=== PATIENT | male | born 1970 | race Caucasian/White ===

== ENCOUNTER 2018-10-11 16:39 | Emergency (ER) | payer MEDICAID ==
[~2018-10-11] VITALS: Ht 182.9 cm; Wt 99.8 kg
[2018-10-11 16:50] VITALS: BP 146/96
[2018-10-11] MEDS ORDERED: IBUPROFEN 600 MG TAB PO ONE (18:00)
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
--- NOTE | 2018-10-11 19:36 | NUR ---
COLLES SPLINT APPLIED TO PT L WRIST, WRAPPED IN [facility] WRAP. +CSM
[2018-10-11 19:55] VITALS: BP 146/96
--- NOTE | 2018-10-11 19:55 | NUR ---
Patient discharged with v/s stable. Written and verbal after care instructions given and explained. Patient alert, oriented and verbalized understanding of instructions. Ambulatory with steady gait. All questions addressed prior to discharge. ID band removed. Patient advised to follow up with PMD. Rx of KEFLEX, BACITRACIN, AND IBUPROFEN given. Patient educated on indication of medication including possible reaction and side effects. Opportunity to ask questions provided and answered.
== END 2018-10-11 19:55 | disposition home or self-care (01) ==
LOC: MED 16:39
DX: S66.912A Strain of unspecified muscle, fascia and tendon at wrist and hand level, left hand, initial encounter (principal); R03.0 Elevated blood-pressure reading, without diagnosis of hypertension; W22.8XXA Striking against or struck by other objects, initial encounter; Y93.89 Activity, other specified; Y92.89 Other specified places as the place of occurrence of the external cause; Y99.0 Civilian activity done for income or pay
CPT/HCPCS: 73110; 90471; 90715; 99283

== ENCOUNTER 2019-06-14 06:04 | Emergency (ER) | payer MEDICAID ==
[~2019-06-14] VITALS: Ht 180.3 cm; Wt 77.1 kg
[2019-06-14 06:05] VITALS: BP 152/92
--- NOTE | 2019-06-14 06:05 | NUR ---
TO BED # 09 AMBULATORY
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
[2019-06-14] MEDS ORDERED: IBUPROFEN 800 MG TAB PO ONE (06:15)
[2019-06-14] MEDS ORDERED: LIDOCAINE 2% 1000 MG/50 ML VIAL INJ ONE (06:15)
--- NOTE | 2019-06-14 06:30 | NUR ---
ERMD AND EMT @ BEDSIDE FOR SUTURE PLACEMENT
[2019-06-14] MEDS ORDERED: NEOMYCIN/POLYMYXIN/BACITRACIN 0.9 GM/1 PKT TP ONE (06:40)
[2019-06-14] MEDS ORDERED: CLINDAMYCIN 600 MG/4 ML VIAL IM ONE (06:40)
[2019-06-14 07:00] VITALS: BP 138/68
--- NOTE | 2019-06-14 07:00 | NUR ---
Patient discharged with v/s stable. Written and verbal after care instructions given and explained. Patient alert, oriented and verbalized understanding of instructions. Ambulatory with steady gait. All questions addressed prior to discharge. ID band removed. Patient advised to follow up with PMD. Rx of CLINDAMYCIN, AND MOTRIN given. Patient educated on indication of medication including possible reaction and side effects. Opportunity to ask questions provided and answered.
== END 2019-06-14 07:00 | disposition home or self-care (01) ==
LOC: MED 06:04
DX: S61.212A Laceration without foreign body of right middle finger without damage to nail, initial encounter (principal); R03.0 Elevated blood-pressure reading, without diagnosis of hypertension; W45.8XXA Other foreign body or object entering through skin, initial encounter; Y93.89 Activity, other specified; Y92.89 Other specified places as the place of occurrence of the external cause; Y99.8 Other external cause status
CPT/HCPCS: 12001; 73140; 96372; 99283; J2001; J3490; Q0092

== ENCOUNTER 2020-06-06 15:39 | Emergency (ER) | payer MEDICAID, OTHER ==
[~2020-06-06] VITALS: Ht 180.3 cm; Wt 99.8 kg
[2020-06-06 16:12] VITALS: BP 162/100
--- NOTE | 2020-06-06 16:20 | NUR ---
PT AMB TO BED 12.
--- NOTE | 2020-06-06 16:26 | NUR ---
Dr. Bryant is evaluating the patient at bedside.
--- NOTE | 2020-06-06 16:44 | NUR ---
Dr. Bryant is at the bedside for procedure.
[2020-06-06] MEDS: LIDOCAINE 2% 1000 MG/50 ML VIAL INJ ONE (17:03)
[2020-06-06] MEDS: LIDOCAINE MPF 1% 10 MG/ML VIAL INJ ONE (17:05)
[2020-06-06] MEDS ORDERED: cefTRIAXone 1,000 MG VIAL ONE (17:07)
[2020-06-06] MEDS ORDERED: LIDOCAINE MPF 1% 5 ML ONE (17:08)
--- NOTE | 2020-06-06 17:19 | NUR ---
emt at bedside for splint
--- NOTE | 2020-06-06 17:22 | NUR ---
APPLIED DRESSING TO LEFT THIRD DIGIT WITHOUT ANY ISSUES
--- NOTE | 2020-06-06 17:22 | NUR ---
APPLIED FINGER SPLINT TO LEFT THIRD DIGIT WITHOUT ANY ISSUES
[2020-06-06] MEDS: cefTRIAXone 1,000 MG in LIDOCAINE MPF 1% 2.1 ML IM ONE (17:24)
[2020-06-06] MEDS: KETOROLAC 60 MG/2 ML VIAL IM ONE (17:25)
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
--- NOTE | 2020-06-06 18:15 | NUR ---
Patient discharged with v/s stable. Written and verbal after care instructions given and explained. Patient alert, oriented and verbalized understanding of instructions. Ambulatory with steady gait. All questions addressed prior to discharge. ID band removed. Patient advised to follow up with PMD. Rx of CLINDAMYCIN 300MG CAP QID PO, AND MOTRIN 800MG TID PO given. Patient educated on indication of medication including possible reaction and side effects. Opportunity to ask questions provided and answered.
== END 2020-06-06 18:14 | disposition home or self-care (01) ==
LOC: MED 15:39
DX: S60.453A Superficial foreign body of left middle finger, initial encounter (principal); W34.09XA Accidental discharge from other specified firearms, initial encounter; Y93.89 Activity, other specified; Y92.89 Other specified places as the place of occurrence of the external cause; Y99.8 Other external cause status
CPT/HCPCS: 10120; 73130; 96372; 99284; J0696; J1885; J2001